=== PATIENT | female | born 1965 | race Caucasian/White ===

== ENCOUNTER 2018-11-04 12:29 | Emergency (ER) | payer MEDICAID, OTHER ==
[~2018-11-04] VITALS: Ht 160 cm; Wt 100.0 kg
[~2018-11-04 12:29] MED LIST: METF-415 PO
[2018-11-04] MEDS ORDERED: KETOROLAC 60MG/2ML VIAL IM STA (15:32)
[2018-11-04 16:25] VITALS: BP 102/64
[2018-11-04 17:01] LABS: BASOPHILS % 0.2 % (0.0-2.0); EOSINOPHILS % 0.4 % (0.0-5.0); HEMATOCRIT. 42.8 % (36.0-48.0); HEMOGLOBIN. 14.4 g/dL (12.0-16.0); LYMPHOCYTES % 8.3 % (20.0-50.0); MEAN CORPUSCULAR VOLUME 91.9 fL (81.0-99.0); MEAN PLATELET VOLUME 10.8 fl (7.4-10.4); MONOCYTES % 10.7 % (2.0-8.0); NEUTROPHILS % 80.4 % (40.0-76.0); PLATELET 100 x1000/uL (130-400); RED BLOOD CELL COUNT 4.66 mill/uL (4.2-5.4); RED CELL DISTRIBUTION WIDTH 14.5 % (11.6-14.6)
[2018-11-04 17:03] LABS: CHLORIDE 105 mEq/L (98-107)
[2018-11-04] MEDS ORDERED: AMOXICILLIN/POTASSIUM CLAVULANATE 875/125MG TAB PO ONE (17:45)
[2018-11-04] MEDS ORDERED: SULFAMETHOXAZOLE/TRIMETHOPRIM 800/160MG TABLET PO ONE (17:45)
== END 2018-11-04 18:09 | disposition home or self-care (01) ==
LOC: ER 13:59
DX: K02.9 Dental caries, unspecified (principal); R59.0 Localized enlarged lymph nodes; E11.9 Type 2 diabetes mellitus without complications
CPT/HCPCS: 36415; 70490; 80048; 82962; 85025; 87070; 87430; 96372; 99284; J1885